=== PATIENT | female | born 1995 | race Caucasian/White ===

== ENCOUNTER 2021-11-06 09:24 | Outpatient (CLI) | payer OTHER, SELFPAY ==
--- NOTE | ~2021-11-06 | US_ITS ---
US breast BI complete DATE: 11/06/2021 10:06 INDICATION: Increased density, upper outer right breast with menstrual cycles over the past year, rig ht greater than left. Pain. No family history of breast cancer. TECHNIQUE: Real-time and color flow imaging and the breasts including all 4 quadrants and subareolar areas COMPARISON: None FINDINGS: Prominent fibroglandular density is noted particularly in the upper outer quadrants, right greater than left. On the right at 12:00 6 cm from the nipple there is an approximately 3.9 x 8.5 mm suspected lymph nod e with prominent fatty hilus. Follow-up ultrasound imaging in 4-6 months is recommended. IMPRESSION: BI-RADS Category 3: Probably benign findings Recommendation: Targeted right breast 12:00 ultrasound follow-up in 4-6 months Reviewed, dictated and finalized at [facility]. Reviewed, dictated and finalized at [facility].
== END 2021-11-06 09:25 ==
PROVIDERS: PCP Nurse Practitioner; Visit Provider Nurse Practitioner
DX: N64.4 Mastodynia (principal); R92.8 Other abnormal and inconclusive findings on diagnostic imaging of breast
CPT/HCPCS: 76641

== ENCOUNTER → 2022-04-17 09:01 | Outpatient (CLI) | payer OTHER, SELFPAY ==
--- NOTE | ~2022-04-17 | US_ITS ---
EXAMINATION: US breast RT limited HISTORY: Six-month follow-up for probably benign right breast mass TECHNIQUE: Limited right breast ultrasound is performed. FINDINGS: There is an 8 mm x 4 mm oval, circumscribed, parallel, hypoechoic mass with no posterior fe atures or internal vascularity at the 12:00 location 6 cm from the nipple in the right breast which d oes not demonstrate significant interval change. IMPRESSION: Probably benign right breast mass. Follow-up targeted right breast ultrasound in six months is recomm ended. BI-RADS category 3, probably benign findings. Reviewed, dictated and finalized at [facility]. [employer] IMPRESSION: Probably benign right breast mass. Follow-up targeted right breast ultrasound i n six months is recommended. BI-RADS category 3, probably benign findings.
== END ==
PROVIDERS: PCP Obstetrics & Gynecology Gynecology; Visit Provider Obstetrics & Gynecology Gynecology
DX: N64.59 Other signs and symptoms in breast (principal); R92.8 Other abnormal and inconclusive findings on diagnostic imaging of breast
CPT/HCPCS: 76642

== ENCOUNTER → 2022-11-03 09:47 | Outpatient (CLI) | payer OTHER, SELFPAY ==
--- NOTE | ~2022-11-03 | US_ITS ---
US breast RT limited DATE: 11/03/2022 09:59 INDICATION: Follow-up of right 12:00 breast mass TECHNIQUE: Real-time imaging and Doppler analysis targeted to 12:00 6 cm from nipple COMPARISON: 04/17/2022, 11/06/2021 right breast ultrasound options FINDINGS: There is a stable approximately 4 x 6 x 7.6 mm circumscribed intramammary lymph node, with fatty hilum. No suspicious vascularity or shadowing is detected. IMPRESSION: BI-RADS Category 2: Benign Reviewed, dictated and finalized at [facility]. Reviewed, dictated and finalized at [facility]. IMPRESSION: BI-RADS Category 2: Benign
== END ==
PROVIDERS: PCP Obstetrics & Gynecology Gynecology; Visit Provider Obstetrics & Gynecology Gynecology
DX: R92.8 Other abnormal and inconclusive findings on diagnostic imaging of breast (principal)
CPT/HCPCS: 76642